=== PATIENT | female | born 1975 | race Hispanic/Latino ===

== ENCOUNTER 2019-12-14 21:25 | Emergency (ER) | payer MEDICAID ==
[2019-12-14] MEDS ORDERED: SODIUM CHLORIDE 0.9% 1000ML 1,000 ML IV ONE (21:26)
[2019-12-14] MEDS ORDERED: ACETAMINOPHEN EXTRA STRENGTH 500 MG TABLET ONE (21:55)
[2019-12-14] MEDS ORDERED: ALBUTEROL INHALER 90MCG/INH IH ONE (21:55)
[2019-12-14 22:35] LABS: BASOPHILS % (AUTO) 0.2 % (0.0-5.0); HEMATOCRIT 43.5 % (36-48); LYMPHOCYTES % (AUTO) 32.8 % (21.0-51.0); MEAN CORPUSCULAR HEMOGLOBIN 24.2 pg (27.0-33.0); MEAN CORPUSCULAR VOLUME 75.8 fL (79-99); NEUTROPHILS % (AUTO) 62.6 % (40.0-77.0); PLATELET COUNT (AUTO) 178 K/uL (130-400); RED BLOOD CELL COUNT(AUTO) 5.74 MIL/uL (4.00-5.50); RED CELL DISTRIBUTION WIDTH 13.6 % (11.0-15.5); WHITE BLOOD COUNT (AUTO) 4.9 K/uL (4.8-10.8)
[2019-12-14 22:50] LABS: CARBON DIOXIDE 27 mmol/L (21-32); CHLORIDE 100 mmol/L (101-111); CREATININE 0.8 mg/dL (0.5-1.5); GLOMERULAR FILTR. RATE CALC 84 mL/min (>60); GLUCOSE,RANDOM 120 mg/dL (70-105); POTASSIUM 3.5 mmol/L (3.5-5.1); SODIUM SERUM 138 mmol/L (136-145); UREA NITROGEN, BLOOD 8 mg/dL (7-18)
[2019-12-14 23:09] LABS: ALANINE AMINOTRANSFERASE 37 U/L (12-78); ALBUMIN 3.8 g/dL (3.5-5.0); ASPARTATE AMINOTRANSFERASE 31 U/L (10-37); BILIRUBIN,TOTAL 0.3 mg/dL (0.2-1.0); CREATINE KINASE, TOTAL 37 U/L (21-232); MYOGLOBIN 19 ng/mL (10-92); TOTAL PROTEIN, SERUM 7.9 g/dL (6.0-8.3); TROPONIN I < 0.04 ng/mL (0.00-0.06)
[2019-12-14 23:10] LABS: INR 0.95 (0.85-1.15); PARTIAL THROMBOPLASTIN TIME 29.8 SEC (26.3-35.5); PROTHROMBIN TIME 10.3 SEC (9.6-11.6)
[2019-12-14 23:12] LABS: RAPID GROUP A STREP NEGATIVE (NEGATIVE)
[2019-12-14] MEDS ORDERED: METHYLPREDNISOLONE SOD SUCC 40MG/ML 1ML ONE (23:24)
[2019-12-14] MEDS ORDERED: AZITHROMYCIN 250 MG TABLET PO ONE (23:25)
[2019-12-14 23:44] LABS: BILIRUBIN,URINE Small (NEGATIVE); COLOR,URINE Dark Yellow (YELLOW); GLUCOSE, URINE (UA) Negative (NEGATIVE); KETONES,URINE >=80 mg/dL (NEGATIVE); LEUKOCYTE ESTERASE ,URINE Negative (NEGATIVE); NITRATE,URINE Negative (NEGATIVE); OCCULT BLOOD,URINE Negative (NEGATIVE); PROTEIN,URINE POS 2+ mg/dL (NEGATIVE)
[2019-12-14 23:45] LABS: APPEARANCE,URINE HAZY (CLEAR)
[2019-12-14 23:56] LABS: RBC,URINE 0-1 /HPF (0-1)
[2019-12-14 23:57] LABS: BACTERIA,URINE Few /HPF (None Seen); MUCUS,URINE Few LPF (None Seen)
[2019-12-28] MEDS ORDERED: APIX2.5T PO ×2 (11:47)
[2019-12-28] MEDS ORDERED: DEXA6TAB PO ×2 (11:47)
== END 2019-12-15 00:01 | disposition home or self-care (01) ==
LOC: EDH 21:25
DX: U07.1 COVID-19 (principal); R05 Cough; R50.9 Fever, unspecified; R09.81 Nasal congestion
CPT/HCPCS: 36415; 71045; 80053; 81001; 82550; 83605; 83874; 84145; 84484; 85025; 85610; 85730; 87040; 87088; 87804 ×2; 87880; 93005; 96374; 99285; J2920; J7030; U0003

== ENCOUNTER 2019-12-19 23:00 | Inpatient (IN) | payer MEDICAID ==
[~2019-12-19] VITALS: Ht 167.6 cm; Wt 107.0 kg
[2019-12-19 23:48] LABS: BASOPHILS % (AUTO) 0.1 % (0.0-5.0); HEMATOCRIT 39.4 % (36-48); MEAN CORPUSCULAR HEMOGLOBIN 24.4 pg (27.0-33.0); MEAN CORPUSCULAR HGB CONC 32.7 g/dL (32.0-36.0); MEAN CORPUSCULAR VOLUME 74.6 fL (79-99); MONOCYTES % (AUTO) 1.1 % (3.0-13.0); NEUTROPHILS % (AUTO) 88.6 % (40.0-77.0); PLATELET COUNT (AUTO) 301 K/uL (130-400); RED BLOOD CELL COUNT(AUTO) 5.28 MIL/uL (4.00-5.50); RED CELL DISTRIBUTION WIDTH 13.5 % (11.0-15.5); WHITE BLOOD COUNT (AUTO) 9.7 K/uL (4.8-10.8)
[2019-12-20 00:04] LABS: INR 0.98 (0.85-1.15); PARTIAL THROMBOPLASTIN TIME 32.8 SEC (26.3-35.5); PROTHROMBIN TIME 10.6 SEC (9.6-11.6)
[2019-12-20 00:08] LABS: CREATININE 0.8 mg/dL (0.5-1.5); POTASSIUM 3.7 mmol/L (3.5-5.1)
[2019-12-20 00:13] LABS: ALBUMIN 3.2 g/dL (3.5-5.0); BILIRUBIN,TOTAL 0.4 mg/dL (0.2-1.0); TOTAL PROTEIN, SERUM 8.1 g/dL (6.0-8.3)
[2019-12-20 00:15] LABS: APPEARANCE,URINE Cloudy (CLEAR); BILIRUBIN,URINE Negative (NEGATIVE); COLOR,URINE Yellow (YELLOW); GLUCOSE, URINE (UA) Negative (NEGATIVE); KETONES,URINE 15 mg/dL (NEGATIVE); LEUKOCYTE ESTERASE ,URINE Trace (NEGATIVE); NITRATE,URINE Negative (NEGATIVE); OCCULT BLOOD,URINE Moderate (NEGATIVE); PROTEIN,URINE 300 mg/dL (NEGATIVE)
[2019-12-20 00:16] LABS: HCG,QUAL RESULT NEGATIVE (NEGATIVE)
[2019-12-20 00:25] LABS: BACTERIA,URINE Few /HPF (None Seen); SQUAMOUS EPITHELIAL CELL,UR Moderate /HPF (0-2)
[2019-12-20 00:29] LABS: CRP QUANTITATIVE 408.5 mg/L (0.00-9.0)
[2019-12-20] MEDS ORDERED: CEFTRIAXONE SODIUM 1 GM ONE (01:40)
[2019-12-20] MEDS ORDERED: AZITHROMYCIN 500MG+NS 250ML 250 ML IV ONE (01:40)
[2019-12-20] MEDS ORDERED: SODIUM CHLORIDE 0.9% 1000ML 1,000 ML IV SCH (01:55)
[2019-12-20] MEDS ORDERED: ONDANSETRON HCL 4 MG/2 ML VIAL IV PRN (02:00)
[2019-12-20] MEDS ORDERED: NITROGLYCERIN 0.4 MG SL TAB SL PRN (02:00)
[2019-12-20] MEDS ORDERED: ACETAMINOPHEN 325 MG TAB PO PRN ×2 (02:00)
[2019-12-20] MEDS ORDERED: ALBUTEROL INHALER 90MCG/INH IH PRN (02:00)
[2019-12-20] MEDS ORDERED: DIPHENHYDRAMINE HCL 25 MG CAPSULE PO PRN (02:00)
[2019-12-20] MEDS ORDERED: DEXAMETHASONE 4 MG TAB PO SCH (02:00)
[2019-12-20 02:13] LABS: ABG BASE EXCESS 2.9 mmol/L (-2.0-3.0); ABG HCO3 28.3 mmol/L (21.0-28.0); ABG OXYGEN SATURATION 91.1 % (95.0-99.0); ABG PCO2 46 mmHg (32-45)
[2019-12-20 02:32] LABS: FERRITIN 326 ng/mL (15-150)
[2019-12-20 02:45] LABS: LACTATE DEHYDROGENASE 271 U/L (81-234); TRIGLYCERIDES 201 mg/dL (30-200)
[2019-12-20 07:47] LABS: HEMATOCRIT 38.5 % (36-48); MEAN CORPUSCULAR HGB CONC 31.7 g/dL (32.0-36.0); MEAN CORPUSCULAR VOLUME 75.8 fL (79-99); PLATELET COUNT (AUTO) 304 K/uL (130-400); RED BLOOD CELL COUNT(AUTO) 5.08 MIL/uL (4.00-5.50); RED CELL DISTRIBUTION WIDTH 13.5 % (11.0-15.5); WHITE BLOOD COUNT (AUTO) 7.6 K/uL (4.8-10.8)
[2019-12-20 08:17] LABS: CREATINE KINASE, TOTAL 19 U/L (21-232)
[2019-12-20 08:25] LABS: ALANINE AMINOTRANSFERASE 15 U/L (12-78); ALBUMIN 2.8 g/dL (3.5-5.0); ASPARTATE AMINOTRANSFERASE 14 U/L (10-37); BILIRUBIN,TOTAL 0.3 mg/dL (0.2-1.0); CARBON DIOXIDE 29 mmol/L (21-32); CHLORIDE 101 mmol/L (101-111); CREATININE 0.7 mg/dL (0.5-1.5); GLOMERULAR FILTR. RATE CALC 98 mL/min (>60); GLUCOSE,RANDOM 137 mg/dL (70-105); MYOGLOBIN 21 ng/mL (10-92); POTASSIUM 3.8 mmol/L (3.5-5.1); SODIUM SERUM 138 mmol/L (136-145); TOTAL PROTEIN, SERUM 7.5 g/dL (6.0-8.3); TROPONIN I < 0.04 ng/mL (0.00-0.06); UREA NITROGEN, BLOOD 10 mg/dL (7-18)
[2019-12-20 08:34] LABS: LYMPHOCYTES % (MANUAL) 15 % (22-44); MAN.DIFF COMMENT-IMPRESSION MANUAL DIFFERENTIAL; MONOCYTES % (MANUAL) 2 % (2-9); PLATELET MORPHOLOGY COMMENT ADEQUATE; SEGMENTED NEUTROPHILS % 83 % (40-70)
[2019-12-20] MEDS ORDERED: DEXAMETHASONE 4 MG TAB ONE (08:53)
[2019-12-20] MEDS ORDERED: ENOXAPARIN SODIUM 30 MG/0.3 ML SQ ONE (08:53)
[2019-12-20] MEDS ORDERED: ENOXAPARIN SODIUM 30 MG/0.3 ML SQ SCH (09:00)
--- NOTE | 2019-12-20 10:55 | NUR ---
Sw attempted to reach pt [phone], no answer, left message and Doug Daniels [phone] no answer and no voice mail. Renate to keep trying to reach and complete IA
[2019-12-20] MEDS ORDERED: METHYLPREDNISOLONE SOD SUCC 40MG/ML 1ML IVP SCH (17:30)
[2019-12-20] MEDS ORDERED: METHYLPREDNISOLONE SOD SUCC 40MG/ML 1ML ONE (22:29)
[2019-12-21] MEDS ORDERED: ONDANSETRON HCL 4 MG/2 ML VIAL ONE (02:44)
[2019-12-21] MEDS ORDERED: METHYLPREDNISOLONE SOD SUCC 40MG/ML 1ML ONE ×2 (05:53→14:46)
[2019-12-21] MEDS ORDERED: AZITHROMYCIN 500MG+NS 250ML 250 ML IV ONE (05:53)
[2019-12-21] MEDS ORDERED: CEFTRIAXONE SODIUM 1 GM ONE (05:53)
[2019-12-21 07:38] LABS: BASOPHILS % (AUTO) 0.2 % (0.0-5.0); LYMPHOCYTES % (AUTO) 20.9 % (21.0-51.0); MEAN CORPUSCULAR HEMOGLOBIN 24.1 pg (27.0-33.0); MEAN CORPUSCULAR HGB CONC 31.3 g/dL (32.0-36.0); MEAN CORPUSCULAR VOLUME 76.9 fL (79-99); MONOCYTES % (AUTO) 2.7 % (3.0-13.0); NEUTROPHILS % (AUTO) 72.1 % (40.0-77.0); PLATELET COUNT (AUTO) 350 K/uL (130-400); RED BLOOD CELL COUNT(AUTO) 4.94 MIL/uL (4.00-5.50); RED CELL DISTRIBUTION WIDTH 13.4 % (11.0-15.5); WHITE BLOOD COUNT (AUTO) 4.1 K/uL (4.8-10.8)
[2019-12-21] MEDS ORDERED: ENOXAPARIN SODIUM 30 MG/0.3 ML SQ ONE (08:08)
[2019-12-21 08:15] LABS: CREATININE 0.6 mg/dL (0.5-1.5); CRP QUANTITATIVE 143.2 mg/L (0.00-9.0); POTASSIUM 4.1 mmol/L (3.5-5.1)
--- NOTE | 2019-12-21 09:15 | NUR ---
SW attempted to reach pt and spouse, neither answered. has no voice mail.
--- NOTE | 2019-12-21 11:34 | NUR ---
SPOKE TO SPOUSE ON PHONE FOR DC PLANNING UNABLE TO REACH PATIENT BY PHONE. . CALL TO SPOUSE X2, ANSWERED AT SECOND ATTEMPT STATE PATIENT IS INDEPENDENT, ACTIVE, DRIVES, HAS NO SELF CARE NEEDS, LIVES WITH SPOUSE AND GROWN CHILDREN, SPOUSE WILL PROVIDE TRANSPORT ON DISCHARGE, AND STATES THAT THE PATIENT HAS A CLINIC SHE GOES TO BUT THE REST OF THE FAMILY DOES NOT, BUT HE DOES NOT REMEMBER THE NAME. DCP IS HOME
[2019-12-22] MEDS ORDERED: METHYLPREDNISOLONE SOD SUCC 40MG/ML 1ML ONE ×3 (02:04→20:41)
[2019-12-22] MEDS ORDERED: SODIUM CHLORIDE 0.9% 100 ML IV ONE (06:04)
[2019-12-22] MEDS ORDERED: CEFTRIAXONE SODIUM 1 GM ONE (06:04)
[2019-12-22] MEDS ORDERED: ENOXAPARIN SODIUM 30 MG/0.3 ML SQ ONE (07:37)
[2019-12-22] MEDS ORDERED: PANTOPRAZOLE SODIUM 40 MG TABLET.DR ONE (07:38)
[2019-12-22 08:40] LABS: CRP QUANTITATIVE 49.6 mg/L (0.00-9.0)
[2019-12-22] MEDS: CEFTRIAXONE SODIUM 1 GM IV SCH (09:00)
[2019-12-22] MEDS: PANTOPRAZOLE SODIUM 40 MG TABLET.DR PO SCH (09:00)
[2019-12-22] MEDS: AZITHROMYCIN 500MG+NS 250ML 250 ML IV SCH (09:00)
[2019-12-22] MEDS ORDERED: AZITHROMYCIN 500MG+NS 250ML 250 ML IV ONE (10:17)
[2019-12-22] MEDS ORDERED: GUAIFENESIN-DM 200/20 MG 10 ML PO PRN (11:45)
--- NOTE | 2019-12-22 22:30 | NUR ---
Admission note: Admitted to floor via stretcher from ER. Pt is AOx4. Continuously attached to a NRB mask and pulse oximeter machine with an O2Sat at 93%. Placed in bed according to pt comfort. She breathes well with prone and sidelying position. VS checked and recorded. Assessment done. (See CPOE flow chart for full assessment) Plan of care continued. Attached to telemetry at bedside with SR 60's. Denies feeling of discomfort. Observed for any unusual changes. Monitored and cared for. No apparent distress noted. Stated she feels better this time.
[2019-12-22 22:54] VITALS: BP 157/92
[2019-12-23 03:26] VITALS: BP 109/62
[2019-12-23] MEDS: METHYLPREDNISOLONE SOD SUCC 40MG/ML 1ML IVP SCH ×3 (03:47→21:12)
[2019-12-23 08:00] VITALS: BP 114/70
[2019-12-23] MEDS: CEFTRIAXONE SODIUM 1 GM IV SCH (08:48)
[2019-12-23] MEDS: PANTOPRAZOLE SODIUM 40 MG TABLET.DR PO SCH (08:48)
[2019-12-23] MEDS: ENOXAPARIN SODIUM 100 MG/1 ML SQ SCH (08:50)
[2019-12-23] MEDS: AZITHROMYCIN 500MG+NS 250ML 250 ML IV SCH (09:56)
[2019-12-23 11:18] LABS: ALBUMIN 2.8 g/dL (3.5-5.0); BILIRUBIN,TOTAL 0.2 mg/dL (0.2-1.0); CRP QUANTITATIVE 16.5 mg/L (0.00-9.0); POTASSIUM 4.4 mmol/L (3.5-5.1); TOTAL PROTEIN, SERUM 6.6 g/dL (6.0-8.3)
[2019-12-23 11:21] LABS: HEMATOCRIT 41.1 % (36-48); MEAN CORPUSCULAR HEMOGLOBIN 24.2 pg (27.0-33.0); MEAN CORPUSCULAR HGB CONC 31.1 g/dL (32.0-36.0); MEAN CORPUSCULAR VOLUME 77.7 fL (79-99); PLATELET COUNT (AUTO) 413 K/uL (130-400); RED BLOOD CELL COUNT(AUTO) 5.29 MIL/uL (4.00-5.50); RED CELL DISTRIBUTION WIDTH 12.9 % (11.0-15.5); WHITE BLOOD COUNT (AUTO) 5.9 K/uL (4.8-10.8)
[2019-12-23 11:37] LABS: BAND NEUTROPHILS % (MANUAL) 15 % (0-2); LYMPHOCYTES % (MANUAL) 10 % (22-44); MAN.DIFF COMMENT-IMPRESSION MANUAL DIFFERENTIAL; MONOCYTES % (MANUAL) 2 % (2-9); PLATELET MORPHOLOGY COMMENT ADEQUATE; SEGMENTED NEUTROPHILS % 73 % (40-70)
[2019-12-23 12:00] VITALS: BP 118/74
[2019-12-23 16:00] VITALS: BP 124/87
[2019-12-23 20:37] VITALS: BP 120/79
[2019-12-23 23:35] VITALS: BP 124/70
--- NOTE | 2019-12-24 00:13 | NUR ---
assessment Patient is alert and oriented times 4. No complaints of any pain.Patient on telemetry # 13. Lungs diminished patient on nonrebreather at 10 liters. Patient had 1 bowel movement of diarrhea today. Will continue to monitor.
[2019-12-24 03:23] VITALS: BP 120/79
[2019-12-24] MEDS: METHYLPREDNISOLONE SOD SUCC 40MG/ML 1ML IVP SCH ×3 (03:31→20:02)
[2019-12-24 06:13] LABS: HEMATOCRIT 39.4 % (36-48); MEAN CORPUSCULAR HEMOGLOBIN 24.2 pg (27.0-33.0); MEAN CORPUSCULAR HGB CONC 32.2 g/dL (32.0-36.0); MEAN CORPUSCULAR VOLUME 75.2 fL (79-99); PLATELET COUNT (AUTO) 382 K/uL (130-400); RED BLOOD CELL COUNT(AUTO) 5.24 MIL/uL (4.00-5.50); RED CELL DISTRIBUTION WIDTH 12.7 % (11.0-15.5)
[2019-12-24 06:39] LABS: ALBUMIN 2.9 g/dL (3.5-5.0); BILIRUBIN,TOTAL 0.3 mg/dL (0.2-1.0); CREATININE 0.6 mg/dL (0.5-1.5); CRP QUANTITATIVE 8.8 mg/L (0.00-9.0); POTASSIUM 4.3 mmol/L (3.5-5.1); TOTAL PROTEIN, SERUM 6.5 g/dL (6.0-8.3)
[2019-12-24 08:14] VITALS: BP 126/73
[2019-12-24 08:58] LABS: LYMPHOCYTES % (MANUAL) 16 % (22-44); MAN.DIFF COMMENT-IMPRESSION MANUAL DIFFERENTIAL; MONOCYTES % (MANUAL) 8 % (2-9); SEGMENTED NEUTROPHILS % 76 % (40-70)
[2019-12-24 08:59] LABS: PLATELET MORPHOLOGY COMMENT ADEQUATE
[2019-12-24] MEDS: PANTOPRAZOLE SODIUM 40 MG TABLET.DR PO SCH (09:09)
[2019-12-24] MEDS: AZITHROMYCIN 500MG+NS 250ML 250 ML IV SCH (09:09)
[2019-12-24] MEDS: CEFTRIAXONE SODIUM 1 GM IV SCH (09:09)
[2019-12-24] MEDS: ENOXAPARIN SODIUM 100 MG/1 ML SQ SCH (09:10)
[2019-12-24 10:19] VITALS: BP 113/56
[2019-12-24] MEDS ORDERED: REMDESIVIR (INVESTIGATIONAL) 100 MG in SODIUM CHLORIDE 0.9% 250 ML IV SCH (13:30)
[2019-12-24 16:24] VITALS: BP 123/70
--- NOTE | 2019-12-24 18:49 | NUR ---
COVID+ PT. AAOX4 IN BED IN NO APPARENT DISTRESS. ISOLATION PRECAUTIONS MAINTAINED. DENIES ANY NEEDS/PAIN. RESPIRATIONS EVEN AND UNLABORED AT REST. O2 VIA VENTIMASK AT 12.5L, TOLERATING. AMBULATORY IN ROOM WITH MILD SOB ON EXERTION. SR ON TELE. CONTINUOUS MONITORING ONGOING. SAFETY MEASURES IN PLACE.
[2019-12-24 19:00] VITALS: BP 124/71
[2019-12-24 23:41] VITALS: BP 117/73
--- NOTE | 2019-12-25 02:17 | NUR ---
ASSESSMENT PATIENT IS ALERT AND ORIENTED TIMES 4. nO COMPLAINTS OF ANY PAIN. Patient is on 12.5 liters of oxygen and a contiuous pulse ox. Will continue to monitor oxygen and heart rate. Heart rate currently 55
[2019-12-25 03:57] VITALS: BP 139/76
[2019-12-25] MEDS: METHYLPREDNISOLONE SOD SUCC 40MG/ML 1ML IVP SCH ×3 (04:45→19:44)
[2019-12-25 07:40] LABS: BASOPHILS % (AUTO) 0.2 % (0.0-5.0); HEMATOCRIT 38.7 % (36-48); LYMPHOCYTES % (AUTO) 16.4 % (21.0-51.0); MEAN CORPUSCULAR HGB CONC 32.6 g/dL (32.0-36.0); MEAN CORPUSCULAR VOLUME 73.6 fL (79-99); MONOCYTES % (AUTO) 3.9 % (3.0-13.0); NEUTROPHILS % (AUTO) 72.3 % (40.0-77.0); PLATELET COUNT (AUTO) 390 K/uL (130-400); RED BLOOD CELL COUNT(AUTO) 5.26 MIL/uL (4.00-5.50); RED CELL DISTRIBUTION WIDTH 12.7 % (11.0-15.5); WHITE BLOOD COUNT (AUTO) 8.7 K/uL (4.8-10.8)
[2019-12-25 08:00] VITALS: BP 122/60
[2019-12-25 08:25] LABS: ALBUMIN 2.9 g/dL (3.5-5.0); BILIRUBIN,TOTAL 0.4 mg/dL (0.2-1.0); CREATININE 0.6 mg/dL (0.5-1.5); CRP QUANTITATIVE 3.8 mg/L (0.00-9.0); POTASSIUM 4.1 mmol/L (3.5-5.1); TOTAL PROTEIN, SERUM 6.4 g/dL (6.0-8.3)
[2019-12-25] MEDS: CEFTRIAXONE SODIUM 1 GM IV SCH (10:44)
[2019-12-25] MEDS: PANTOPRAZOLE SODIUM 40 MG TABLET.DR PO SCH (10:45)
[2019-12-25] MEDS: ENOXAPARIN SODIUM 100 MG/1 ML SQ SCH (10:45)
[2019-12-25] MEDS: AZITHROMYCIN 500MG+NS 250ML 250 ML IV SCH (10:45)
[2019-12-25 12:00] VITALS: BP 111/62
[2019-12-25 16:00] VITALS: BP 122/87
--- NOTE | 2019-12-25 18:16 | NUR ---
Pt received 2 units of plasma, pt stated no signs and symptoms of distress, no adverse reaction, vitals stable, pt is on ABT with no adverse reaction, pt is in bed resting,
[2019-12-25 20:12] VITALS: BP 111/68
[2019-12-26] VITALS (7 sets, daily range): BP systolic 93–127; BP diastolic 44–74
--- NOTE | 2019-12-26 02:56 | NUR ---
assessment Pt. is alert and oriented times 4. No complaints of any pain. patient is on o2 at 1 liter. given insulin for high blood sugar.. WIll continue to monitor.
[2019-12-26] MEDS: METHYLPREDNISOLONE SOD SUCC 40MG/ML 1ML IVP SCH ×3 (05:04→20:00)
[2019-12-26 07:04] LABS: HEMATOCRIT 39.5 % (36-48); MEAN CORPUSCULAR HEMOGLOBIN 24.3 pg (27.0-33.0); MEAN CORPUSCULAR HGB CONC 32.7 g/dL (32.0-36.0); MEAN CORPUSCULAR VOLUME 74.5 fL (79-99); PLATELET COUNT (AUTO) 387 K/uL (130-400); RED CELL DISTRIBUTION WIDTH 12.7 % (11.0-15.5); WHITE BLOOD COUNT (AUTO) 9.9 K/uL (4.8-10.8)
[2019-12-26 08:35] LABS: BILIRUBIN,TOTAL 0.3 mg/dL (0.2-1.0); CREATININE 0.7 mg/dL (0.5-1.5); CRP QUANTITATIVE 6.7 mg/L (0.00-9.0); POTASSIUM 3.9 mmol/L (3.5-5.1); TOTAL PROTEIN, SERUM 6.6 g/dL (6.0-8.3)
[2019-12-26 08:50] LABS: BAND NEUTROPHILS % (MANUAL) 1 % (0-2); LYMPHOCYTES % (MANUAL) 23 % (22-44); MAN.DIFF COMMENT-IMPRESSION MANUAL DIFFERENTIAL; MONOCYTES % (MANUAL) 3 % (2-9); PLATELET MORPHOLOGY COMMENT ADEQUATE; SEGMENTED NEUTROPHILS % 73 % (40-70)
[2019-12-26] MEDS: PANTOPRAZOLE SODIUM 40 MG TABLET.DR PO SCH (09:29)
[2019-12-26] MEDS: AZITHROMYCIN 500MG+NS 250ML 250 ML IV SCH (09:29)
[2019-12-26] MEDS: CEFTRIAXONE SODIUM 1 GM IV SCH (09:29)
[2019-12-26] MEDS: ENOXAPARIN SODIUM 100 MG/1 ML SQ SCH (09:30)
--- NOTE | 2019-12-26 17:13 | NUR ---
COVID+ PT. AAOX4 IN BED IN NO APPARENT DISTRESS. ISOLATION PRECAUTIONS MAINTAINED. DENIES ANY NEEDS/PAIN. RESPIRATIONS EVEN AND UNLABORED AT REST. O2 VIA VENTIMASK AT 8L, TOLERATING, O2 SATS STABLE. CONTINUOUS MONITOR OF O2 SAT AND HEART RATE VIA ANTHONY. ABX THERAPY CONTINUES. VOICED NO COMPLAINTS. SAFETY MEASURES IN PLACE.
--- NOTE | 2019-12-27 02:56 | NUR ---
assessment patient is alert and oriented times 4 No complaints of any pain. she is on 6 liters nasal canula.
[2019-12-27 04:00] VITALS: BP 99/63
[2019-12-27] MEDS: METHYLPREDNISOLONE SOD SUCC 40MG/ML 1ML IVP SCH ×3 (04:35→19:38)
[2019-12-27 06:46] LABS: HEMATOCRIT 40.8 % (36-48); MEAN CORPUSCULAR HGB CONC 32.4 g/dL (32.0-36.0); PLATELET COUNT (AUTO) 363 K/uL (130-400); RED BLOOD CELL COUNT(AUTO) 5.51 MIL/uL (4.00-5.50); RED CELL DISTRIBUTION WIDTH 13.1 % (11.0-15.5); WHITE BLOOD COUNT (AUTO) 9.2 K/uL (4.8-10.8)
[2019-12-27 07:00] LABS: ALANINE AMINOTRANSFERASE 23 U/L (12-78); ALBUMIN 3.1 g/dL (3.5-5.0); ASPARTATE AMINOTRANSFERASE 8 U/L (10-37); BILIRUBIN,TOTAL 0.4 mg/dL (0.2-1.0); CARBON DIOXIDE 31 mmol/L (21-32); CHLORIDE 99 mmol/L (101-111); CREATININE 0.8 mg/dL (0.5-1.5); GLOMERULAR FILTR. RATE CALC 84 mL/min (>60); GLUCOSE,RANDOM 273 mg/dL (70-105); LACTATE DEHYDROGENASE 148 U/L (81-234); POTASSIUM 4.8 mmol/L (3.5-5.1); SODIUM SERUM 135 mmol/L (136-145); TOTAL PROTEIN, SERUM 6.5 g/dL (6.0-8.3); UREA NITROGEN, BLOOD 17 mg/dL (7-18)
[2019-12-27 07:06] LABS: CRP QUANTITATIVE < 2.00 mg/L (0.00-9.0)
[2019-12-27] MEDS ORDERED: METHYLPREDNISOLONE SOD SUCC 125MG/2ML VIAL IVP SCH (07:07)
[2019-12-27 07:40] LABS: BAND NEUTROPHILS % (MANUAL) 2 % (0-2); LYMPHOCYTES % (MANUAL) 21 % (22-44); MAN.DIFF COMMENT-IMPRESSION MANUAL DIFFERENTIAL; MONOCYTES % (MANUAL) 4 % (2-9); SEGMENTED NEUTROPHILS % 73 % (40-70)
[2019-12-27 09:42] VITALS: BP 98/58
[2019-12-27] MEDS: AZITHROMYCIN 500MG+NS 250ML 250 ML IV SCH (09:52)
[2019-12-27] MEDS: PANTOPRAZOLE SODIUM 40 MG TABLET.DR PO SCH (09:53)
[2019-12-27] MEDS: CEFTRIAXONE SODIUM 1 GM IV SCH (09:53)
[2019-12-27] MEDS: ENOXAPARIN SODIUM 100 MG/1 ML SQ SCH (09:53)
[2019-12-27 13:27] VITALS: BP 120/60
--- NOTE | 2019-12-27 18:42 | NUR ---
COVID+ PT. AAOX4 IN BED IN NO APPARENT DISTRESS. ISOLATION PRECAUTIONS MAINTAINED. DENIES ANY NEEDS/PAIN. RESPIRATIONS EVEN AND UNLABORED AT REST. MILD SOB WITH EXERTION. 3L O2 VIA NC, TOLERATING, O2 SATS STABLE. CONTINUOUS MONITORING OF O2 SAT AND HEART RATE VIA ANTHONY. VOICED NO COMPLAINTS. SAFETY MEASURES IN PLACE.
[2019-12-27 19:27] VITALS: BP 103/62
[2019-12-27 20:00] VITALS: BP 99/57
[2019-12-28 00:11] VITALS: BP 103/53
--- NOTE | 2019-12-28 04:10 | NUR ---
PAGED HOSPITALIST , AWARE OF DR. REGALADO'S ORDERS OK TO PLACE THEM IN
[2019-12-28 04:18] VITALS: BP 105/60
[2019-12-28 05:17] LABS: BASOPHILS % (AUTO) 0.2 % (0.0-5.0); HEMATOCRIT 41.2 % (36-48); LYMPHOCYTES % (AUTO) 17.8 % (21.0-51.0); MEAN CORPUSCULAR HEMOGLOBIN 24.3 pg (27.0-33.0); MEAN CORPUSCULAR HGB CONC 32.3 g/dL (32.0-36.0); MEAN CORPUSCULAR VOLUME 75.2 fL (79-99); MONOCYTES % (AUTO) 3.8 % (3.0-13.0); NEUTROPHILS % (AUTO) 74.7 % (40.0-77.0); PLATELET COUNT (AUTO) 345 K/uL (130-400); RED BLOOD CELL COUNT(AUTO) 5.48 MIL/uL (4.00-5.50); RED CELL DISTRIBUTION WIDTH 13.1 % (11.0-15.5); WHITE BLOOD COUNT (AUTO) 8.3 K/uL (4.8-10.8)
[2019-12-28 05:28] LABS: ALANINE AMINOTRANSFERASE 26 U/L (12-78); ASPARTATE AMINOTRANSFERASE 11 U/L (10-37); BILIRUBIN,TOTAL 0.3 mg/dL (0.2-1.0); CARBON DIOXIDE 29 mmol/L (21-32); CHLORIDE 97 mmol/L (101-111); CREATININE 0.7 mg/dL (0.5-1.5); GLOMERULAR FILTR. RATE CALC 98 mL/min (>60); GLUCOSE,RANDOM 287 mg/dL (70-105); LACTATE DEHYDROGENASE 147 U/L (81-234); POTASSIUM 4.3 mmol/L (3.5-5.1); SODIUM SERUM 134 mmol/L (136-145); TOTAL PROTEIN, SERUM 6.6 g/dL (6.0-8.3); UREA NITROGEN, BLOOD 20 mg/dL (7-18)
[2019-12-28] MEDS ORDERED: DEXAMETHASONE 4 MG TAB PO SCH (09:00)
[2019-12-28 09:35] VITALS: BP 104/64
[2019-12-28] MEDS: ENOXAPARIN SODIUM 100 MG/1 ML SQ SCH (09:53)
[2019-12-28] MEDS: PANTOPRAZOLE SODIUM 40 MG TABLET.DR PO SCH (09:54)
--- NOTE | 2019-12-28 11:46 | NUR ---
CM NOTE/ELIQUIS CALL FROM DR. GONZALES STATING HE WAS GOING TO DC PATIENT HOME WITH ELIQUIS RX. ELIQUIS COUPON PRINTED TO POD THAT PATIENT IS IN. PRIMARY NURSE, RAMON HAZEL, CALLED AND TOLD ABOUT ELIQUIS COUPON IN PRINTER. NURSE AWARE TO GIVE TO PATIENT TO PRESENT TO PHARMACY ALONG WITH 30 DAY ELIQUIS RX.
[2019-12-28] MEDS ORDERED: APIX2.5T PO (11:47)
[2019-12-28] MEDS ORDERED: DEXA6TAB PO (11:47)
--- NOTE | 2019-12-28 11:54 | NUR ---
RDSCREEN -LOS X 9 Pt admitted with COVID PNA, ARF. Pt tolerating Heart Healthy Diet order. Good PO at 100%. Obesity Class II. Pending discharge to self-isolation x 10 days, per EMR. Recommend 500mg Vitamin C (BID) Recommend 60mL ProMod (QD) RD to continue to monitor. Please notify RD as additional nutrition concerns arise. Thank you.
[2019-12-28 13:13] VITALS: BP 104/52
--- NOTE | 2019-12-28 14:38 | NUR ---
AAOX4. COVID+ PT, ISOLATION PRECAUTIONS MAINTAINED. DENIES ANY NEEDS/PAIN. RESPIRATIONS EVEN AND UNLABORED AT REST. MILD SOB WITH EXERTION. O2 SATS STABLE ON ROOM AIR. DR. GONZALES ROUNDED WITH ORDER TO DISCHARGE PATIENT HOME. PRINTED PRESCRIPTIONS GIVEN TO PATIENT. IV ACCESS REMOVED. COVID19 ISOLATION PRECAUTIONS REINFORCED WITH UNDERSTANDING VERBALIZED. DISCHARGE TEACHING DONE. EDUCATION HANDOUTS GIVEN TO PATIENT. AWAITING TRANSPORTATION HOME.
--- NOTE | 2019-12-28 15:45 | NUR ---
PT TRANSPORTED VIA WHEELCHAIR TO PRIVATE VEHICLE FOR DISCHARGE HOME.
== END 2019-12-28 15:45 | disposition home or self-care (01) | DRG 137 ==
LOC: EDH 23:00 → EDHIP 23:01 → 4BH 12-22 14:42 → EDHIP 12-22 14:47 → 4BH 12-22 22:34
PROVIDERS: ADMIT Family Medicine; ATTEND Family Medicine
PROC: 30233M1 Transfusion of Nonautologous Plasma Cryoprecipitate into Peripheral Vein, Percutaneous Approach (ICD-10-PCS; principal; 2019-12-25)
DX: U07.1 COVID-19 (principal); J96.01 Acute respiratory failure with hypoxia; J96.02 Acute respiratory failure with hypercapnia; J12.89 Other viral pneumonia; N39.0 Urinary tract infection, site not specified; E66.01 Morbid (severe) obesity due to excess calories; E87.1 Hypo-osmolality and hyponatremia; Z68.38 Body mass index [BMI] 38.0-38.9, adult
CPT/HCPCS: 36415; 36430; 36600; 71045; 80048; 80053; 81001; 81025; 82550; 82728; 82803; 82948; 83605; 83615; 83735; 83874; 84145; 84478; 84484; 85025; 85378; 85384; 85610; 85730; 86140; 86850; 86900; 86901; 86927; 87040; 87088; 87641; 93005; 94760; 99291; A4606; G0378; J0456; J0696; J1650; J2405; J2920; J8540; P9017; U0003

== ENCOUNTER 2022-07-31 13:01 | Emergency (ER) | payer MEDICAID ==
[~2022-07-31] VITALS: Ht 167.6 cm; Wt 108.9 kg
[~2022-07-31 13:01] MED LIST: APIX2.5T PO; DEXA6TAB PO
[2022-07-31 13:04] VITALS: BP 141/89
[2022-07-31] MEDS ORDERED: CIPR7.5D OT (13:34)
== END 2022-07-31 13:41 | disposition home or self-care (01) ==
LOC: EDH 13:01
DX: H60.8X3 Other otitis externa, bilateral (principal); Z79.899 Other long term (current) drug therapy; Z79.52 Long term (current) use of systemic steroids; Z79.01 Long term (current) use of anticoagulants